=== PATIENT | female | born 1955 | race Caucasian/White ===

== ENCOUNTER 2018-07-06 15:07 | Emergency (ER) | payer MEDICARE, MEDICAID ==
[2018-07-06 16:18] LABS: ABSOLUTE LYMPHOCYTES (AUTO) 0.5 10^3/uL (0.5-4.7); ABSOLUTE MONOCYTES (AUTO) 0.4 10^3/uL (0.1-1.4); ABSOLUTE NEUT (AUTO) 4.3 10^3/uL (1.7-8.2); BASOPHILS % (AUTO) 0.1 % (0-2); HEMATOCRIT 33.5 % (36.0-47.0); HEMOGLOBIN 11.1 g/dL (12.0-15.5); LYMPHOCYTES % (AUTO) 9.7 % (13-45); MEAN CORPUSCULAR HEMOGLOBIN 30.1 pg (27.0-33.4); MEAN CORPUSCULAR HGB CONC 33.1 g/dL (32.0-36.0); MEAN CORPUSCULAR VOLUME 91 fl (80-97); MONOCYTES % (AUTO) 6.9 % (3-13); PLATELET COUNT 156 10^3/uL (150-450); RED BLOOD COUNT 3.69 10^6/uL (3.72-5.28); RED CELL DISTRIBUTION WIDTH 16.2 % (11.5-14.0); SEGMENTED NEUTROPHILS % (AUTO) 83.3 % (42-78); TOTAL CELLS COUNTED % (AUTO) 100 %; WHITE BLOOD COUNT 5.1 10^3/uL (4.0-10.5)
[2018-07-06 16:30] LABS: ALANINE AMINOTRANSFERASE 30 U/L (9-52); ALBUMIN 3.8 g/dL (3.5-5.0); ALKALINE PHOSPHATASE 70 U/L (38-126); ANION GAP 7 (5-19); ASPARTATE AMINO TRANSFERASE 25 U/L (14-36); BILIRUBIN,DIRECT 0.1 mg/dL (0.0-0.4); BILIRUBIN,TOTAL 0.2 mg/dL (0.2-1.3); BLOOD UREA NITROGEN 18 mg/dL (7-20); CALCIUM 9.2 mg/dL (8.4-10.2); CARBON DIOXIDE 26 mmol/L (22-30); CHLORIDE 109 mmol/L (98-107); CREATINE KINASE 149 U/L (30-135); GLUCOSE 108 mg/dL (75-110); POTASSIUM 4.4 mmol/L (3.6-5.0); SODIUM 142.4 mmol/L (137-145); TOTAL PROTEIN 6.5 g/dL (6.3-8.2)
[2018-07-06 16:33] LABS: AMORPHOUS SEDIMENT,URINE TRACE /HPF; APPEARANCE,URINE CLOUDY; BILIRUBIN,URINE NEGATIVE (NEGATIVE); COLOR,URINE AMBER; GLUCOSE, URINE NEGATIVE (NEGATIVE); KETONES,URINE NEGATIVE (NEGATIVE); LEUKOCYTE ESTERASE,URINE MODERATE (NEGATIVE); NITRITE,URINE NEGATIVE (NEGATIVE); PROTEIN,URINE NEGATIVE (NEGATIVE); URINE SPECIFIC GRAVITY 1.015
[2018-07-06] MEDS ORDERED: CEFTRIAXONE INJ 1000 MG VIAL IM ONE (17:13)
[2018-07-06] MEDS ORDERED: LIDOCAINE 1% INJ-PF (10 MG/ML) 30 ML SDV INJ ONE (17:13)
[2018-07-06 18:12] VITALS: BP 121/90
--- NOTE | 2018-07-06 21:55 | ER Document Report ---
Entered by BLAKE ARNOLD SCRIBE 07/06/18 1538 Acting as scribe for:REY MEI MD ED General - General Chief Complaint: Tremor Stated Complaint: JERKING MOVEMENTS Time Seen by Provider: 07/06/18 15:18 Primary Care Provider: HUMBLE MARCOS FNP-C [NO LOCAL MD] - 07/08/18 Mode of Arrival: Medic Information source: Emergency Med Personnel, [facility] Records Notes: Patient is a 63 year old female with Alzheimer's, dementia, major depressive disorder, lupus, Crohn's presents to the emergency department via EMS from [facility] due to jerking movements. Patient was brought in due to staff at [facility] noticing jerking movements to her arms. Daughter at bedside states the patient appears agitated which is not normal as well as the jerking movements. Daughter states the patient began to severely decline in mental health following her seizure in 2011. In 2012 patient was diagnosed with Dementia. She states the patient recently moved from a nursing facility in [place] to [facility]. She reports the patient was diagnosed with an UTI in early April further noting the patient develops UTIs frequently. She also states in late April 2018 she was admitted to the hospital due to having an low sodium and low blood sugar. Patient is currently prescribed Seroquel, Haldol, Mirtazapine, Depakote. - Related Data Allergies/Adverse Reactions: codeine Allergy (Verified 07/06/18 17:19) Penicillins Allergy (Verified 07/06/18 17:19) Past Medical History - General Information source: Emergency Med Personnel, [facility] Records, Outside Facility Records - Social History Smoking Status: Unknown if Ever Smoked Family History: Reviewed & Not Pertinent GI Medical History: Reports: Hx Crohn's Disease Psychiatric Medical History: Reports: Hx Dementia, Hx Depression Past Surgical History: Reports: Hx Genitourinary Surgery, Hx Hysterectomy - Immunizations Hx Diphtheria, Pertussis, Tetanus Vaccination: Yes Hx Pneumococcal Vaccination: 06/22/11 Review of Systems - Review of Systems Notes: ROS per daughter. Constitutional: No symptoms reported EENT: No symptoms reported Cardiovascular: No symptoms reported Respiratory: No symptoms reported Gastrointestinal: No symptoms reported Genitourinary: No symptoms reported Female Genitourinary: No symptoms reported Musculoskeletal: See HPI Skin: No symptoms reported Hematologic/Lymphatic: No symptoms reported Neurological/Psychological: See HPI -: Yes All other systems reviewed and negative Physical Exam - Vital signs Vitals: Temp Pulse Resp BP Pulse Ox 98.2 F 85 18 116/70 100 07/06/18 15:15 07/06/18 15:15 07/06/18 15:15 07/06/18 15:15 07/06/18 15:15 - Notes Notes: GENERAL: Alert, demented at baseline. Does not communicate. Continuously looks down to the right.. No acute distress. HEAD: Normocephalic, atraumatic. EYES: Pupils equal, round, and reactive to light. Extraocular movements intact. ENT: Oral mucosa moist, tongue midline. NECK: Full range of motion. Supple. Trachea midline. LUNGS: Clear to auscultation bilaterally, no wheezes, rales, or rhonchi. No respiratory distress. HEART: Regular rate and rhythm. No murmurs, gallops, or rubs. ABDOMEN: Soft, non-tender. Non-distended. Bowel sounds present in all 4 quadrants. EXTREMITIES: Moves all 4 extremities spontaneously. No edema, radial and dorsalis pedis pulses 2/4 bilaterally. No cyanosis. NEUROLOGICAL: Demented at baseline. Does not communicate. Continuously looks down to the right. Picks at random things. PSYCH: Demented at baseline. Does not communicate. SKIN: Warm, dry, normal turgor. No rashes or lesions noted. Course - Vital Signs Vital signs: Temp Pulse Resp BP Pulse Ox 98.0 F 88 20 121/90 H 96 07/06/18 18:11 07/06/18 18:11 07/06/18 18:11 07/06/18 18:11 07/06/18 18:11 - Laboratory Result Diagrams: 07/06/18 15:57 07/06/18 15:57 Laboratory results interpreted by me: 07/06/18 07/06/18 07/06/18 15:57 15:57 15:57 RBC 3.69 L Hgb 11.1 L Hct 33.5 L RDW 16.2 H Seg Neutrophils % 83.3 H Lymphocytes % 9.7 L Chloride 109 H Creatine Kinase 149 H Urine Blood SMALL H Urine Urobilinogen 2.0 H Ur Leukocyte Esterase MODERATE H Discharge - Discharge Clinical Impression: Psychomotor restlessness Urinary tract infection Qualifiers: Urinary tract infection type: site unspecified Hematuria presence: with hematuria Qualified Code(s): N39.0 - Urinary tract infection, site not specified; R31.9 - Hematuria, unspecified Disposition: HOME, SELF-CARE I personally performed the services described in the documentation, reviewed and edited the documentation which was dictated to the scribe in my presence, and it accurately records my words and actions.
== END 2018-07-06 18:12 | disposition home or self-care (01) ==
LOC: ER 15:07
DX: R45.1 Restlessness and agitation (principal); N39.0 Urinary tract infection, site not specified; R25.1 Tremor, unspecified; G30.9 Alzheimer's disease, unspecified; F02.80 Dementia in other diseases classified elsewhere, unspecified severity, without behavioral disturbance, psychotic disturbance, mood disturbance, and anxiety; Z87.440 Personal history of urinary (tract) infections; Z88.6 Allergy status to analgesic agent; Z88.0 Allergy status to penicillin
CPT/HCPCS: 99283; 96372; 51701; 36415; 87086; 82550; 83735; 85025; 87088; 80053; 81001; 80164; 87186; 83605; J3490; J0696

== ENCOUNTER 2018-07-22 13:12 | Emergency (ER) | payer MEDICARE, MEDICAID ==
[2018-07-22 14:07] VITALS: BP 118/72
--- NOTE | 2018-07-22 15:45 | ER Document Report ---
Addendum entered and electronically signed by ASHVIN ROSE PA-C 07/22/18 23:24: Course - Re-evaluation Re-evalutation: 07/22/18 23:23 Patient is resting at this time. CT scan was reviewed. There was some mention of normal pressure hydrocephalus is differential if applicable. Patient is not symptomatic of normal pressure hydrocephalus. We will treat the UTI. Have the nurse practitioner evaluate the patient on during normal rounds. If the patient is in need of being seen sooner, they will return to the emergency department. - Vital Signs Vital signs: Temp Pulse Resp BP Pulse Ox 98.4 F 68 16 118/72 98 07/22/18 13:59 07/22/18 13:59 07/22/18 13:59 07/22/18 13:59 07/22/18 13:59 - Laboratory Result Diagrams: 07/22/18 15:50 07/22/18 15:50 Laboratory results interpreted by me: 07/22/18 07/22/18 07/22/18 15:50 15:50 16:20 WBC 3.6 L RBC 3.54 L Hgb 10.8 L Hct 31.9 L RDW 16.1 H Chloride 109 H Total Protein 6.1 L Albumin 3.4 L Urine Nitrite POSITIVE H Ur Leukocyte Esterase MODERATE H Addendum entered and electronically signed by ASHVIN ROSE PA-C 07/22/18 19:26: Course - Re-evaluation Re-evalutation: 07/22/18 19:25 I accepted the patient at sign out at 1900. Patient is a 63-year-old female with advanced Alzheimer's with some swelling to her wrist and head. Daughter is concerned that she is not at her normal mentation level. She does have evidence of a UTI. CT scan of the head is pending. X-rays of the extremity are negative for fracture. Haldol was ordered due to the patient's lack of cooperation with this study. - Vital Signs Vital signs: Temp Pulse Resp BP Pulse Ox 98.4 F 68 16 118/72 98 07/22/18 13:59 07/22/18 13:59 07/22/18 13:59 07/22/18 13:59 07/22/18 13:59 - Laboratory Result Diagrams: 07/22/18 15:50 07/22/18 15:50 Laboratory results interpreted by me: 07/22/18 07/22/18 07/22/18 15:50 15:50 16:20 WBC 3.6 L RBC 3.54 L Hgb 10.8 L Hct 31.9 L RDW 16.1 H Chloride 109 H Total Protein 6.1 L Albumin 3.4 L Urine Nitrite POSITIVE H Ur Leukocyte Esterase MODERATE H Addendum entered and electronically signed by LIYA JACINTO PA-C 07/22/18 19:15: Course - Re-evaluation Re-evalutation: Upon preparation for discharge I was talking with daughter who was concerned a bout the ecchymosis over her mom's left eye and the small amount of edema of the left eyelid. When I looked at patient she had a small, new area of edema infraorbital over the maxillary area. This prompted a discussion about mom's overall mental status in the last couple of days daughter stated that the patient has been lethargic and only sleeping and awake to eat. She states this is not normal even in the setting of her advanced dementia. The ecchymosis over the left eye was greenish in color indicating that it has been present for a couple of days. At this point I was concerned that mom did have a fall a couple of days ago that was not addressed so the decision was made to do a CT head without contrast to ensure no intracranial pathology. 07/22/18 19:05 07/22/18 19:14 dermatology technician came over and told me that patient was not at all cooperative sitting on the table and she kept lurching up. He said he could not calm her down. I will give her Haldol 5 mg IM 1 time. I have discussed the patient with CHEYENNE Amezcua, who has agreed to take over care of the patient. - Vital Signs Vital signs: Temp Pulse Resp BP Pulse Ox 98.4 F 68 16 118/72 98 07/22/18 13:59 07/22/18 13:59 07/22/18 13:59 07/22/18 13:59 07/22/18 13:59 - Laboratory Result Diagrams: 07/22/18 15:50 07/22/18 15:50 Laboratory results interpreted by me: 07/22/18 07/22/18 07/22/18 15:50 15:50 16:20 WBC 3.6 L RBC 3.54 L Hgb 10.8 L Hct 31.9 L RDW 16.1 H Chloride 109 H Total Protein 6.1 L Albumin 3.4 L Urine Nitrite POSITIVE H Ur Leukocyte Esterase MODERATE H Original Note: ED General - General Chief Complaint: Hand Swelling Stated Complaint: WEAKNESS Time Seen by Provider: 07/22/18 15:03 Notes: 63-year-old female with Alzheimer's disease presents to the emergency department from a with swelling of the left wrist and swelling of the left eyelid. She was brought in by ambulance and per run report staff said they did not see a fall. Per daughter, there is been reports that she has had multiple falls in the last couple of weeks. Unable to elicit history from patient as she is unable to carry on a conversation. Daughter states that she recently was transferred to [facility] after she had not been taking care of at the last home, and she is concerned that the left wrist is "hot "to the touch. TRAVEL OUTSIDE OF THE [place] IN LAST 30 DAYS: No - Related Data Allergies/Adverse Reactions: cephalexin Allergy (Verified 07/22/18 14:10) codeine Allergy (Verified 07/06/18 17:19) Penicillins Allergy (Verified 07/06/18 17:19) Past Medical History - Social History Smoking Status: Never Smoker Family History: Reviewed & Not Pertinent Patient has suicidal ideation: No Patient has homicidal ideation: No Pulmonary Medical History: Denies: Hx Tuberculosis Renal/ Medical History: Denies: Hx Peritoneal Dialysis GI Medical History: Reports: Hx Crohn's Disease Psychiatric Medical History: Reports: Hx Dementia, Hx Depression Past Surgical History: Reports: Hx Genitourinary Surgery, Hx Hysterectomy. Denies: Hx Pacemaker - Immunizations Hx Diphtheria, Pertussis, Tetanus Vaccination: Yes Hx Pneumococcal Vaccination: 06/22/11 Review of Systems - Review of Systems -: Yes ROS unobtainable due to patient's medical condition Neurological/Psychological: Dementia Physical Exam - Vital signs Vitals: Temp Pulse Resp BP Pulse Ox 98.4 F 68 16 118/72 98 07/22/18 13:59 07/22/18 13:59 07/22/18 13:59 07/22/18 13:59 07/22/18 13:59 - Notes Notes: PHYSICAL EXAMINATION: Reviewed vital signs and charting by RN GENERAL: Alert, interacts well. No acute distress. HEAD: Normocephalic, some mild supraorbital edema over left eye with mild ecchymosis EYES: Pupils equal, round. Extraocular movements intact. ENT: Oral mucosa moist NECK: Full range of motion.Trachea midline. LUNGS: Clear to auscultation bilaterally, no wheezes, rales, or rhonchi. No respiratory distress. HEART: Regular rate and rhythm. No murmur ABDOMEN: soft, non-tender. Non-distended. Bowel sounds present in all 4 quadrants. no McBurney's point tenderness, no Hart sign. EXTREMITIES: Moves all 4 extremities spontaneously. Left wrist ecchymosis, warm to the touch, edema of left wrist normal range of motion NEUROLOGICAL: Dementia, interactive but inappropriate words related to conversation Course - Re-evaluation Re-evalutation: 07/22/18 15:45 Overall well-appearing 63-year-old female with Alzheimer's disease presents for suspected fall. Plan is to get a left wrist x-ray series and some basic blood work to ensure she is does not have underlying infection. 07/22/18 17:16 Urinalysis positive for UTI. Because daughter states it takes 24 hours for them to get medications she is requesting a shot of something, so I will give patient Rocephin 1 g IM. I will give a 7-day course of Keflex. X-rays were negative for fractures or any abnormal findings other than soft tissue swelling. For protection I will place her in a wrist splint for the next couple of days. Was also an abrasion noted on her left lateral elbow that looked was later healing stages most likely from a fall. Daughter agrees with plan and patient is stable to discharge back to facility. - Vital Signs Vital signs: Temp Pulse Resp BP Pulse Ox 98.4 F 68 16 118/72 98 07/22/18 13:59 07/22/18 13:59 07/22/18 13:59 07/22/18 13:59 07/22/18 13:59 - Laboratory Result Diagrams: 07/22/18 15:50 07/22/18 15:50 Laboratory results interpreted by me: 07/22/18 07/22/18 07/22/18 15:50 15:50 16:20 WBC 3.6 L RBC 3.54 L Hgb 10.8 L Hct 31.9 L RDW 16.1 H Chloride 109 H Total Protein 6.1 L Albumin 3.4 L Urine Nitrite POSITIVE H Ur Leukocyte Esterase MODERATE H Discharge - Discharge Clinical Impression: Abrasion of left elbow, initial encounter Urinary tract infection Qualifiers: Urinary tract infection type: acute cystitis Hematuria presence: without hematuria Qualified Code(s): N30.00 - Acute cystitis without hematuria Left wrist injury Qualifiers: Encounter type: initial encounter Qualified Code(s): S69.92XA - Unspecified injury of left wrist, hand and finger(s), initial encounter Condition: Good Disposition: HOME, SELF-CARE Additional Instructions: You are seen in the emergency department this evening for swelling of your left wrist. It is unclear why this occurred but looks like it is most likely related to trauma may be from a fall. We placed her wrist in a wrist splint to help p rotect it for the next few days. You can ice your wrist for 20 minutes at a time every couple of hours to help reduce swelling. He also been diagnosed with urinary tract infection. I have given you a shot called Rocephin which will cover for the next 24 hours while the medication to the pharmacy are processed. We will then go on Keflex 500 mg 1 tablet 2 times per day for the next 7 days. If you develop high fever, any changes from your baseline mental status, pass out, or have any other concerns please merely return to the emergency department. Prescriptions: Cephalexin Monohydrate [Keflex 500 mg Capsule] 500 mg PO BID #14 capsule
--- NOTE | 2018-07-22 15:52 | RADIOLOGY REPORT (SQ) ---
EXAM DESCRIPTION: WRIST LEFT 3 VIEWS COMPLETED DATE/TIME: 07/22/2018 3:38 pm REASON FOR STUDY: trauma COMPARISON: None. NUMBER OF VIEWS: Three views. TECHNIQUE: AP, lateral, and oblique radiographic images acquired of the left wrist. LIMITATIONS: None. FINDINGS: MINERALIZATION: Osteopenia. BONES: No acute fracture or dislocation. No worrisome bone lesions. Normal alignment. Severe left thumb basal arthrosis. SOFT TISSUES: No soft tissue swelling. No foreign body. OTHER: No other significant finding. IMPRESSION: Osteopenia without displaced fracture or dislocation. Consider MRI to more sensitively evaluate for marrow edema if there is high clinical suspicion for fracture in the setting of osteopen ia. TECHNICAL DOCUMENTATION: JOB ID: [id number] [employer]- All Rights Reserved Reading location - IP/workstation name: [email or web address]
[2018-07-22 16:12] LABS: ABSOLUTE MONOCYTES (AUTO) 0.4 10^3/uL (0.1-1.4); ABSOLUTE NEUT (AUTO) 2.1 10^3/uL (1.7-8.2); BASOPHILS % (AUTO) 0.2 % (0-2); EOSINOPHILS % (AUTO) 0.8 % (0-6); HEMATOCRIT 31.9 % (36.0-47.0); HEMOGLOBIN 10.8 g/dL (12.0-15.5); LYMPHOCYTES % (AUTO) 28.2 % (13-45); MEAN CORPUSCULAR HEMOGLOBIN 30.5 pg (27.0-33.4); MEAN CORPUSCULAR HGB CONC 33.8 g/dL (32.0-36.0); MEAN CORPUSCULAR VOLUME 90 fl (80-97); MONOCYTES % (AUTO) 10.8 % (3-13); PLATELET COUNT 177 10^3/uL (150-450); RED BLOOD COUNT 3.54 10^6/uL (3.72-5.28); RED CELL DISTRIBUTION WIDTH 16.1 % (11.5-14.0); TOTAL CELLS COUNTED % (AUTO) 100 %; WHITE BLOOD COUNT 3.6 10^3/uL (4.0-10.5)
[2018-07-22 16:25] LABS: ALANINE AMINOTRANSFERASE 17 U/L (9-52); ALBUMIN 3.4 g/dL (3.5-5.0); ALKALINE PHOSPHATASE 58 U/L (38-126); ANION GAP 8 (5-19); ASPARTATE AMINO TRANSFERASE 23 U/L (14-36); BILIRUBIN,DIRECT 0.2 mg/dL (0.0-0.4); BILIRUBIN,TOTAL 0.3 mg/dL (0.2-1.3); BLOOD UREA NITROGEN 19 mg/dL (7-20); CALCIUM 9.1 mg/dL (8.4-10.2); CARBON DIOXIDE 25 mmol/L (22-30); CHLORIDE 109 mmol/L (98-107); GLUCOSE 101 mg/dL (75-110); POTASSIUM 4.2 mmol/L (3.6-5.0); SODIUM 141.7 mmol/L (137-145); TOTAL PROTEIN 6.1 g/dL (6.3-8.2)
[2018-07-22 16:40] LABS: AMORPHOUS SEDIMENT,URINE TRACE /HPF; APPEARANCE,URINE CLOUDY; BILIRUBIN,URINE NEGATIVE (NEGATIVE); COLOR,URINE YELLOW; GLUCOSE, URINE NEGATIVE (NEGATIVE); KETONES,URINE NEGATIVE (NEGATIVE); LEUKOCYTE ESTERASE,URINE MODERATE (NEGATIVE); NITRITE,URINE POSITIVE (NEGATIVE); PROTEIN,URINE NEGATIVE (NEGATIVE); URINE SPECIFIC GRAVITY 1.012; UROBILINOGEN,URINE NEGATIVE mg/dL (<2.0)
[2018-07-22] MEDS ORDERED: CEFTRIAXONE INJ 1000 MG VIAL IM ONE (17:04)
[2018-07-22] MEDS ORDERED: HALOPERIDOL LACTATE INJ 5 MG/1 ML VIAL IM ONE (19:15)
[2018-07-22] MEDS ORDERED: LORAZEPAM INJ 2 MG/1 ML VIAL IM ONE (20:30)
--- NOTE | 2018-07-22 22:52 | RADIOLOGY REPORT (SQ) ---
EXAM DESCRIPTION: CT HEAD WITHOUT IV CONTRAST COMPLETED DATE/TME: 07/22/2018 17:41 CLINICAL HISTORY: 63 years, Female, fall COMPARISON: 06/20/2011 CT TECHNIQUE: 191 Images stored on PACS. All CT scanners at this facility use dose modulation, iterative reconstruction, and/or weight based dosing when appropriate to reduce radiation dose to as low as reasonably achievable (ALARA). [facility]: Dose Right [facility]: CareDose [facility]: Dose Right [facility]: Teradose 4D [facility]: [employer] LIMITATIONS: None. FINDINGS: Motion artifact degrades image quality. The globes are intact. Polyps of the right maxillary sinus. No displaced or depressed skull fracture. No intra or extra-axial hemorrhage. CT is limited for evaluation of acute infarct. No CT evidence for large or territorial acute infarct. Diffuse atrophy. No mass or midline shift. Ventricular prominence equivocally out of proportion to sulcal prominence could reflect normal pressure hydrocephalus in the appropriate clinical setting. Minor small vessel ischemic change noted. IMPRESSION: Atrophy with minor small vessel ischemic change. Ventricular prominence slightly out of proportion to sulcal prominence which could reflect NPH in the appropriate clinical setting TECHNICAL DOCUMENTATION: Quality ID # 436: Final reports with documentation of one or more dose reduction techniques (e.g., Automated exposure control, adjustment of the mA and/or kV according to patient size, use of iterative reconstruction technique) copyright 2011 [employer]- All Rights Reserved
== END 2018-07-22 23:53 | disposition home or self-care (01) ==
LOC: ER 13:12
DX: S50.312A Abrasion of left elbow, initial encounter (principal); S69.92XA Unspecified injury of left wrist, hand and finger(s), initial encounter; N30.00 Acute cystitis without hematuria; W19.XXXA Unspecified fall, initial encounter; Y92.129 Unspecified place in nursing home as the place of occurrence of the external cause; G30.9 Alzheimer's disease, unspecified; F02.80 Dementia in other diseases classified elsewhere, unspecified severity, without behavioral disturbance, psychotic disturbance, mood disturbance, and anxiety; Z91.81 History of falling; Z88.6 Allergy status to analgesic agent; Z88.0 Allergy status to penicillin
CPT/HCPCS: 99284; 96372; 51701; 36415; 85025; 80053; 81001; 73110; 70450; L3908; J1630; J2060; J0696

== ENCOUNTER 2018-07-27 20:40 | Emergency (ER) | payer MEDICARE, MEDICAID ==
[2018-07-27] MEDS ORDERED: LIDOCAINE 1%/EPINEPHRINE INJ 20 ML VIAL INJ ONE (21:00)
--- NOTE | 2018-07-27 21:04 | ER Document Report ---
ED Fall - General Chief Complaint: Fall Injury Stated Complaint: LACERATION OF LEFT EYEBROW Time Seen by Provider: 07/27/18 20:53 Notes: Patient is a 63-year-old female that comes to the emergency department for chief complaint of a fall, patient reportedly fell out of her bed and hit her head on the ground, she has a history of Alzheimer's, comes by EMS from [facility]. Patient is unable to give me any meaningful history. EMS reports that patient was noted to be in bed by staff and then when they checked on again she was on the ground. She has an obvious bleeding laceration above the left eyebrow, no other signs of trauma. She has not on a blood thinner. She is wearing a left wrist brace but this is reportedly from an old injury. TRAVEL OUTSIDE OF THE [place] IN LAST 30 DAYS: No - Related data Allergies/Adverse Reactions: cephalexin Allergy (Verified 07/27/18 20:57) codeine Allergy (Verified 07/27/18 20:57) Penicillins Allergy (Verified 07/27/18 20:57) Past Medical History - General Information source: Patient, Emergency Med Personnel - Social History Smoking Status: Unknown if Ever Smoked Frequency of alcohol use: None Drug Abuse: None Lives with: [facility] Family History: Reviewed & Not Pertinent Patient has suicidal ideation: No Patient has homicidal ideation: No Pulmonary Medical History: Denies: Hx Tuberculosis Renal/ Medical History: Denies: Hx Peritoneal Dialysis GI Medical History: Reports: Hx Crohn's Disease Psychiatric Medical History: Reports: Hx Dementia, Hx Depression Past Surgical History: Reports: Hx Genitourinary Surgery, Hx Hysterectomy. Denies: Hx Pacemaker - Immunizations Hx Diphtheria, Pertussis, Tetanus Vaccination: Yes Hx Pneumococcal Vaccination: 06/22/11 Review of Systems - Review of Systems Constitutional: No symptoms reported EENT: No symptoms reported Cardiovascular: No symptoms reported Respiratory: No symptoms reported Gastrointestinal: No symptoms reported Genitourinary: No symptoms reported Female Genitourinary: No symptoms reported Musculoskeletal: See HPI Skin: See HPI Hematologic/Lymphatic: No symptoms reported Neurological/Psychological: See HPI Physical Exam - Vital signs Vitals: Temp Pulse Resp BP Pulse Ox 98.2 F 73 17 134/84 H 98 07/27/18 20:40 07/27/18 20:40 07/27/18 20:40 07/27/18 20:40 07/27/18 20:40 - Notes Notes: GENERAL: Alert, interacts well. No acute distress. HEAD: Normocephalic, there is a small hematoma over the left upper eyebrow area with a 2 cm irregular partial-thickness laceration that is currently bleeding. No other signs of trauma over the head. EYES: Pupils equal, round, and reactive to light. Extraocular movements intact. ENT: Oral mucosa moist, tongue midline. Oropharynx unremarkable. Airway patent. Nares patent, no nasal septal hematoma, TM's intact. NECK: Full range of motion. Supple. Trachea midline. LUNGS: Clear to auscultation bilaterally, no wheezes, rales, or rhonchi. No respiratory distress. HEART: Regular rate and rhythm. No murmur ABDOMEN: Soft, non-tender. Non-distended. Bowel sounds present in all 4 quadrants. GENITOURINARY: Deferred EXTREMITIES: Moves all 4 extremities spontaneously. No edema, normal radial and dorsalis pedis pulses bilaterally. No cyanosis. BACK: no cervical, thoracic, lumbar midline tenderness. No saddle anesthesia, normal distal neurovascular exam. NEUROLOGICAL: Alert but disoriented. Normal speech. [cranial nerves II through XII grossly intact]. SKIN: Warm, dry, normal turgor. No rashes or lesions noted. Course - Re-evaluation Re-evalutation: Patient at neurological baseline reportedly. I do not see any signs of trauma or note any other areas of pain on examination except for the left forehead above the eyebrow. CAT scan of the head with no acute findings although does show possible EQUITY ANALYST H, I did discuss this with son-in-law at bedside, after discussion he was provided with a copy of the CAT scan and report for follow-up. Wound repaired, discussed directions for this, discussed return precautions. He states understanding and agreement. He personally took patient back to her facility. - Vital Signs Vital signs: Temp Pulse Resp BP Pulse Ox 98 F 71 16 115/74 94 07/27/18 23:04 07/27/18 23:04 07/27/18 23:04 07/27/18 23:04 07/27/18 23:04 Procedures - Laceration/Wound Repair Left eyebrow Wound length (cm): 2 Wound's Depth, Shape: Irregular Laceration pre-procedure: Sterile PPE donned, Sterile drapes applied, Shur-Clens applied Anesthetic type: 1% Lidocaine w/epi Volume Anesthetic (mLs): 2 Wound explored: Clean, No foreign body removed Wound Repaired With: Sutures Suture Size/Type: 6:0, Nylon Number of Sutures: 3 Post-procedure wound care: Other - bacitracin applied Post-procedure NV exam normal: Yes Complications: No Discharge - Discharge Clinical Impression: Fall Qualifiers: Encounter type: initial encounter Qualified Code(s): W19.XXXA - Unspecified fall, initial encounter Head injury Qualifiers: Encounter type: initial encounter Qualified Code(s): S09.90XA - Unspecified inj ury of head, initial encounter Eyebrow laceration Qualifiers: Encounter type: initial encounter Laterality: left Qualified Code(s): S01.112A - Laceration without foreign body of left eyelid and periocular area, initial encounter Condition: Stable Disposition: HOME, SELF-CARE Additional Instructions: The sutures can be removed in 5-7 days. Keep area clean, clean gently with soap and water, you can apply topical antib iotic such as bacitracin. Return for any concerning symptoms including signs of wound infection such as developing or spreading redness, discolored drainage, increased swelling, fever, etc. Also return if she develops concerning neurological symptoms including vomiting, seizure, change in mental status, or any other concerning symptoms.
--- NOTE | 2018-07-27 21:45 | RADIOLOGY REPORT (SQ) ---
EXAM DESCRIPTION: CT HEAD WITHOUT IV CONTRAST COMPLETED DATE/TME: 07/27/2018 21:00 CLINICAL HISTORY: 63 years, Female, head injury, hematoma COMPARISON: 07/22/2018 CT TECHNIQUE: 193 Images stored on PACS. All CT scanners at this facility use dose modulation, iterative reconstruction, and/or weight based dosing when appropriate to reduce radiation dose to as low as reasonably achievable (ALARA). [facility]: Dose Right [facility]: CareDose [facility]: Dose Right [facility]: Teradose 4D [facility]: [employer] LIMITATIONS: None. FINDINGS: The globes are intact. The paranasal sinuses and mastoid air cells are unremarkable. No displaced or depressed skull fracture. Small left frontal scalp hematoma. CT is limited for evaluation of acute infarct. No CT evidence for large or territorial acute infarct. Diffuse atrophy with minor small vessel ischemic change. As described previously, ventricular prominence slightly out of proportion to sulcal prominence. Correlate for the possibility of NPH IMPRESSION: Negative for acute intracranial abnormality. Small left frontal scalp hematoma. Atrophy with small vessel ischemic change. Questionable asymmetric ventricular prominence could reflect NPH in the appropriate clinical setting. TECHNICAL DOCUMENTATION: Quality ID # 436: Final reports with documentation of one or more dose reduction techniques (e.g., Automated exposure control, adjustment of the mA and/or kV according to patient size, use of iterative reconstruction technique) copyright 2011 [employer]- All Rights Reserved
[2018-07-27 23:22] VITALS: BP 115/74
== END 2018-07-27 23:22 | disposition home or self-care (01) ==
LOC: ER 20:40
DX: S01.112A Laceration without foreign body of left eyelid and periocular area, initial encounter (principal); W06.XXXA Fall from bed, initial encounter; Y92.193 Bedroom in other specified residential institution as the place of occurrence of the external cause; G30.9 Alzheimer's disease, unspecified; F02.80 Dementia in other diseases classified elsewhere, unspecified severity, without behavioral disturbance, psychotic disturbance, mood disturbance, and anxiety; Z88.1 Allergy status to other antibiotic agents; Z88.0 Allergy status to penicillin; Z88.5 Allergy status to narcotic agent
CPT/HCPCS: 99283; 70450; 12011; J3490

== ENCOUNTER 2018-08-03 14:13 | Emergency (ER) | payer MEDICARE, MEDICAID ==
--- NOTE | 2018-08-03 15:07 | RADIOLOGY REPORT (SQ) ---
EXAM DESCRIPTION: CT HEAD WITHOUT COMPLETED DATE/TIME: 08/03/2018 2:57 pm REASON FOR STUDY: fall COMPARISON: 07/27/2018 TECHNIQUE: Axial images acquired through the brain without intravenous contrast. Images reviewed wi th bone, brain and subdural windows. Additional sagittal and coronal reconstructions were generated. Images stored on PACS. All CT scanners at this facility use dose modulation, iterative reconstruction, and/or weight based d osing when appropriate to reduce radiation dose to as low as reasonably achievable (ALARA). [facility]: Dose Right [facility]: CareDose [facility]: Dose Right [facility]: Teradose 4D [facility]: Smart [employer] RADIATION DOSE: CT Rad equipment meets quality standard of care and radiation dose reduction techniq ues were employed. CTDIvol: 23.1 mGy. DLP: 533 mGy-cm.mGy. LIMITATIONS: None. FINDINGS: VENTRICLES: Prominent. CEREBRUM: No masses. No hemorrhage. No midline shift. Areas of low density in the white matter mos t likely due to chronic micro-vascular ischemic change. No evidence for acute infarction. CEREBELLUM: No masses. No hemorrhage. No alteration of density. No evidence for acute infarction. EXTRAAXIAL SPACES: Age-related involutional change. No fluid collections. No masses. ORBITS AND GLOBE: No intra- or extraconal masses. Normal contour of globe without masses. CALVARIUM: No fracture. PARANASAL SINUSES: No fluid or mucosal thickening. SOFT TISSUES: No mass or hematoma. OTHER: No other significant finding. IMPRESSION: CHRONIC CHANGES OF ATROPHY AND MICROVASCULAR ISCHEMIA. NO ACUTE PROCESS. EVIDENCE OF ACUTE STROKE: NO. TECHNICAL DOCUMENTATION: JOB ID: [id number] Quality ID # [id number]: Final reports with documentation of one or more dose reduction techniques (e.g., Au tomated exposure control, adjustment of the mA and/or kV according to patient size, use of iterative reconstruction technique) 2010 [employer]- All Rights Reserved Reading location - IP/workstation name: [email or web address]
--- NOTE | 2018-08-03 15:08 | RADIOLOGY REPORT (SQ) ---
EXAM DESCRIPTION: CT CERVICAL SPINE WITHOUT COMPLETED DATE/TIME: 08/03/2018 2:57 pm REASON FOR STUDY: fall COMPARISON: None. TECHNIQUE: Axial images acquired through the cervical spine without intravenous contrast. Images re viewed with lung, soft tissue and bone windows. Reconstructed coronal and sagittal MPR images review ed. Images stored on PACS. All CT scanners at this facility use dose modulation, iterative reconstruction, and/or weight based d osing when appropriate to reduce radiation dose to as low as reasonably achievable (ALARA). [facility]: Dose Right [facility]: CareDose [facility]: Dose Right [facility]: Teradose 4D [facility]: [employer] RADIATION DOSE: CT Rad equipment meets quality standard of care and radiation dose reduction techniq ues were employed. CTDIvol: 9.8 mGy. DLP: 167 mGy-cm. mGy. LIMITATIONS: None. FINDINGS: ALIGNMENT: Anatomic. MINERALIZATION: Normal. VERTEBRAL BODIES: No fractures or dislocation. DISCS: No significant disc disease. FACETS, LATERAL MASSES, POSTERIOR ELEMENTS: No fractures. No dislocation. No acute findings. HARDWARE: None in the spine. VISUALIZED RIBS: No fractures. LUNG APICES AND SOFT TISSUES: No significant or acute findings. OTHER: No other significant finding. IMPRESSION: NO ACUTE OR SIGNIFICANT FINDINGS IN THE CERVICAL SPINE. TECHNICAL DOCUMENTATION: JOB ID: [id number] Quality ID # [id number]: Final reports with documentation of one or more dose reduction techniques (e.g., Au tomated exposure control, adjustment of the mA and/or kV according to patient size, use of iterative reconstruction technique) 2010 [employer]- All Rights Reserved Reading location - IP/workstation name: [email or web address]
[2018-08-03 16:16] LABS: ABSOLUTE LYMPHOCYTES (AUTO) 0.6 10^3/uL (0.5-4.7); ABSOLUTE MONOCYTES (AUTO) 0.7 10^3/uL (0.1-1.4); ABSOLUTE NEUT (AUTO) 6.8 10^3/uL (1.7-8.2); BASOPHILS % (AUTO) 0.2 % (0-2); EOSINOPHILS % (AUTO) 0.2 % (0-6); HEMOGLOBIN 11.4 g/dL (12.0-15.5); LYMPHOCYTES % (AUTO) 7.6 % (13-45); MEAN CORPUSCULAR HEMOGLOBIN 30.7 pg (27.0-33.4); MEAN CORPUSCULAR HGB CONC 33.6 g/dL (32.0-36.0); MEAN CORPUSCULAR VOLUME 91 fl (80-97); MONOCYTES % (AUTO) 8.2 % (3-13); PLATELET COUNT 201 10^3/uL (150-450); RED BLOOD COUNT 3.73 10^6/uL (3.72-5.28); RED CELL DISTRIBUTION WIDTH 15.4 % (11.5-14.0); SEGMENTED NEUTROPHILS % (AUTO) 83.8 % (42-78); TOTAL CELLS COUNTED % (AUTO) 100 %; WHITE BLOOD COUNT 8.1 10^3/uL (4.0-10.5)
[2018-08-03 16:25] LABS: AMORPHOUS SEDIMENT,URINE TRACE /HPF; APPEARANCE,URINE CLOUDY; BILIRUBIN,URINE NEGATIVE (NEGATIVE); COLOR,URINE YELLOW; GLUCOSE, URINE NEGATIVE (NEGATIVE); KETONES,URINE NEGATIVE (NEGATIVE); LEUKOCYTE ESTERASE,URINE NEGATIVE (NEGATIVE); NITRITE,URINE NEGATIVE (NEGATIVE); PROTEIN,URINE NEGATIVE (NEGATIVE); URINE SPECIFIC GRAVITY 1.015
[2018-08-03 16:31] LABS: ALANINE AMINOTRANSFERASE 26 U/L (9-52); ALBUMIN 3.8 g/dL (3.5-5.0); ALKALINE PHOSPHATASE 69 U/L (38-126); ANION GAP 6 (5-19); ASPARTATE AMINO TRANSFERASE 23 U/L (14-36); BILIRUBIN,DIRECT 0.1 mg/dL (0.0-0.4); BILIRUBIN,TOTAL 0.5 mg/dL (0.2-1.3); BLOOD UREA NITROGEN 14 mg/dL (7-20); CALCIUM 9.4 mg/dL (8.4-10.2); CARBON DIOXIDE 29 mmol/L (22-30); CHLORIDE 109 mmol/L (98-107); GLUCOSE 107 mg/dL (75-110); POTASSIUM 4.1 mmol/L (3.6-5.0); SODIUM 143.6 mmol/L (137-145); TOTAL PROTEIN 6.7 g/dL (6.3-8.2)
--- NOTE | 2018-08-03 18:11 | ER Document Report ---
ED Fall - General Chief Complaint: Fall Stated Complaint: FALL,BODY PAIN Time Seen by Provider: 08/03/18 15:21 Mode of Arrival: Ambulatory Information source: Patient Notes: This is a 63-year-old female with a history of dementia who is a resident of the [facility] brought into the emergency room after a fall. Patient reportedly had slipped out of her recliner. Patient is accompanied by her daughter and son states that he has had a significant decline in the last several months. TRAVEL OUTSIDE OF THE [place] IN LAST 30 DAYS: No - HPI Occurred: Just prior to arrival Where: Home Context: Slipped Associated symptoms: None - None reported Location of injury/pain: Head Quality of pain: No pain Severity: None Pain Level: Denies - Related data Allergies/Adverse Reactions: cephalexin Allergy (Verified 07/27/18 20:57) codeine Allergy (Verified 07/27/18 20:57) Penicillins Allergy (Verified 07/27/18 20:57) Past Medical History - General Information source: Patient - Social History Smoking Status: Unknown if Ever Smoked Cigarette use (# per day): No Chew tobacco use (# tins/day): No Frequency of alcohol use: None Drug Abuse: None Lives with: [facility] Family History: Reviewed & Not Pertinent Patient has suicidal ideation: No Patient has homicidal ideation: No - Past Medical History Cardiac Medical History: Reports: Hx Hypertension Pulmonary Medical History: Reports: None Denies: Hx Tuberculosis Neurological Medical History: Reports: Other - Dementia Endocrine Medical History: Reports: None Renal/ Medical History: Denies: Hx Peritoneal Dialysis Malignancy Medical History: Reports: None GI Medical History: Reports: Hx Crohn's Disease Musculoskeletal Medical History: Reports Other - Lupus Skin Medical History: Reports None Psychiatric Medical History: Reports: Hx Dementia, Hx Depression Past Surgical History: Reports: Hx Genitourinary Surgery, Hx Hysterectomy. Denies: Hx Pacemaker - Immunizations Hx Diphtheria, Pertussis, Tetanus Vaccination: Yes Hx Pneumococcal Vaccination: 06/22/11 Review of Systems - Review of Systems Constitutional: denies: Chills, Fever EENT: See HPI Cardiovascular: No symptoms reported Respiratory: No symptoms reported Gastrointestinal: No symptoms reported Genitourinary: No symptoms reported Female Genitourinary: No symptoms reported Musculoskeletal: See HPI Skin: See HPI Hematologic/Lymphatic: No symptoms reported Neurological/Psychological: No symptoms reported Physical Exam - Vital signs Vitals: Temp Pulse Resp BP Pulse Ox 98.6 F 72 14 94/55 L 98 08/03/18 14:21 08/03/18 14:21 08/03/18 14:21 08/03/18 14:21 08/03/18 14:21 Notes: Physical exam: GENERAL: Is a 63-year-old female with a history of dementia. She is nonverbal at this time. No acute distress. HEAD: normocephalic. She does have contusion under the left eye. She does have stitches to the left eyebrow. EYES: Pupils equal round and reactive to light, extraocular movements intact, sclera anicteric, conjunctiva are normal. ENT: oropharynx clear without exudates. Moist mucous membranes. NECK: Normal range of motion, supple without obvious mass LUNGS: Breath sounds clear to auscultation bilaterally and equal. No wheezes rales or rhonchi. HEART: Regular rate and rhythm without murmurs, rubs or gallops. ABDOMEN: Soft, normoactive bowel sounds. No tenderness to palpation. No guarding, no rebound. No masses appreciated. EXTREMITIES: Normal range of motion, no pitting or edema. No clubbing or cyanosis. NEUROLOGICAL: He is lying dementia. Nonverbal at this time. SKIN: Warm, Dry, normal turgor, no rashes or lesions noted. Course - Re-evaluation Re-evalutation: 08/03/18 23:07 I had a long discussion with the family. We did check labs for any electrolyte abnormality or dehydration. We did check urine for any type of infection. She had a head CT for any acute bleed. I essentially check for the things I could for any reversible causes that might precipitate her worsening dementia. Patient does have a follow-up with a neurologist and I gave the family copies of all the reports as well as CT is on disc and copies of today's labs to bring with them when they see the neurologist. - Vital Signs Vital signs: Temp Pulse Resp BP Pulse Ox 98.6 F 77 16 112/69 97 08/03/18 14:21 08/03/18 18:28 08/03/18 18:28 08/03/18 18:28 08/03/18 18:28 - Laboratory Result Diagrams: 08/03/18 16:00 08/03/18 16:00 Laboratory results interpreted by me: 08/03/18 08/03/18 08/03/18 16:00 16:00 16:00 Hgb 11.4 L Hct 34.0 L RDW 15.4 H Seg Neutrophils % 83.8 H Lymphocytes % 7.6 L Chloride 109 H Urine Urobilinogen 2.0 H - Diagnostic Test Radiology reviewed: Image reviewed, Reports reviewed - CT of the head shows no bleed Discharge - Discharge Clinical Impression: Fall, Head contusion Condition: Stable Disposition: HOME, SELF-CARE Additional Instructions: As we discussed, the CT of the head showed no acute intracranial process. We will often do a CT of the neck to make sure the cervical spine is intact: It did look good. Ms. Quinonez's labs look good today. There was no evidence of electrolyte abnormalities or dehydration. The urine sample (via catheterization) showed no evidence of infection. We did send a urine culture which would take 2 days to come back. I would bring a copy of these labs with you when you see the neurologist. Please bring a copy of the CT report as well as the CT on disc when seeing the neurologist. Return to the emergency room for any concerns for worsening mental status changes.
[2018-08-03 18:32] VITALS: BP 112/69
== END 2018-08-03 18:28 | disposition home or self-care (01) ==
LOC: ER 14:13
DX: Z04.3 Encounter for examination and observation following other accident (principal); S01.112D Laceration without foreign body of left eyelid and periocular area, subsequent encounter; W19.XXXD Unspecified fall, subsequent encounter; F03.90 Unspecified dementia, unspecified severity, without behavioral disturbance, psychotic disturbance, mood disturbance, and anxiety; Z88.1 Allergy status to other antibiotic agents; Z88.5 Allergy status to narcotic agent; Z88.0 Allergy status to penicillin; I10 Essential (primary) hypertension
CPT/HCPCS: 36415; 51701; 70450; 72125; 80053; 81001; 85025; 87086; 99285